=== PATIENT | female | born 1980 ===

== ENCOUNTER 2016-08-19 08:29 | Emergency (ER) | payer OTHER ==
[2016-08-19 08:54] VITALS: O2SAT 96
[2016-08-19] MEDS ORDERED: Albuterol-Ipratrop 3 mg / 0.5 (3 ml) UD INH STA ×2 (09:43→10:46)
--- NOTE | 2016-08-19 10:11 | RAD ---
HISTORY: r/o pneumo COMPARISON: None available. TECHNIQUE: Chest PA and lateral FINDINGS: LUNGS: Patchy opacity within the medial right upper lobe may reflect pneumonia. Please note that chest x-ray has limited sensitivity for the detection of pulmonary masses. PLEURA: No significant pleural effusion identified. No definite pneumothorax . CARDIOVASCULAR: The cardiomediastinal silhouette appears within normal limits of size. OSSEOUS STRUCTURES: No acute osseous abnormality identified. VISUALIZED UPPER ABDOMEN: Unremarkable. OTHER FINDINGS: None. IMPRESSION: Patchy opacity within the medial right upper lobe may reflect pneumonia.
--- NOTE | 2016-08-19 10:32 | ED PDOC ---
HPI: CCC, URI, Sore Throat Time Seen by Provider: 08/19/16 09:11 Chief Complaint (Nursing): Cough, Cold, Congestion Chief Complaint (Provider): Chronic Cough and SOB History Per: Patient History/Exam Limitations: no limitations Have you had recent travel within the past 21 days to any of the following countries: [place], [place], [place] or [place]?: No Onset/Duration Of Symptoms: Days (30) Current Symptoms Are (Timing): Still Present Location Of Pain: None Sick Contacts (Context): None Associated Symptoms: Sore Throat, Cough. denies: Fever, Chills, Neck Pain, Nasal Congestion, Vomiting, Diarrhea Additional Complaint(s): 36 yo F w/ PMHx of Hypothyroid presents to ER w 1 month h/o chronic cough, occasional dyspnea, and occasional SOB. She does state post tussive emesis with chest wall tenderness after some of her coughing fits, however, she denies any recent fever/chills, nausea, sick contacts. Patient states that her seasonal allergies flared up 2 months ago and seemingly resolved, when she began developing a cough that did not dissipate. At the beginning of last week, she went to her PMD and received a script for Doxycycline that she has since been taking daily. She has no history of asthma or pneumonia and has never had any breathing complication or issue in the past. Otherwise, she denies cardiac pain , palpitations, abdominal pain, hematuria, dysuria, or other myalgias. Past Medical History Vital Signs: Last Vital Signs Temp 99.2 F 08/19/16 08:50 Pulse 94 H 08/19/16 08:50 Resp 20 08/19/16 08:50 BP 111/59 L 08/19/16 08:50 Pulse Ox 96 08/19/16 12:35 - Medical History PMH: Hypercholesterolemia, Hyperlipidemia, Hypothyroidism - Family History Family History: States: No Known Family Hx - Home Medications Home Medications: Ambulatory Orders Medication Instructions Recorded Albuterol HFA [Ventolin HFA 90 1 - 2 puff IH Q4H PRN #1 bottle 08/19/16 mcg/actuation (8 g)] Azithromycin [Zithromax] 250 mg PO DAILY #6 tab 08/19/16 - Allergies Allergies/Adverse Reactions: Allergies Allergy/AdvReac Type Severity Reaction Status Date / Time No Known Allergies Allergy Verified 08/19/16 09:15 Curb-65 Severity Score - CURB-65 Severity Score Confusion: No Bun >19mg/dl (>7mmol/L): No Respiratory Rate greater than/equal to 30: No Systolic BP <90 or Diastolic BP less than/equal 60mmHg: No Age >64: No Curb-65 Score: 0 Percentage 30-day mortality: 0.6% Review of Systems ROS Statement: Except As Marked, All Systems Reviewed And Found Negative (see HPI) Physical Exam - Reviewed Nursing Documentation Reviewed: Yes Vital Signs Reviewed: Yes - Physical Exam Appears: Positive for: Non-toxic, Uncomfortable Head Exam: Positive for: ATRAUMATIC, NORMOCEPHALIC Skin: Positive for: Normal Color, Warm, Dry Eye Exam: Positive for: Normal appearance, EOMI, PERRL ENT: Positive for: Normal ENT Inspection. Negative for: Nasal Congestion, Pharyngeal Erythema, Tonsillar Exudate Neck: Positive for: Normal, Painless ROM Cardiovascular/Chest: Positive for: Regular Rate, Rhythm. Negative for: Edema Respiratory: Positive for: Crackles, Wheezing (bilaterally throughout) Gastrointestinal/Abdominal: Positive for: Normal Exam, Soft. Negative for: Tenderness Neurologic/Psych: Positive for: Alert, inside technical sales representative II-XII, Oriented - Laboratory Results Result Diagrams: 08/19/16 08:43 08/19/16 08:43 - ECG O2 Sat by Pulse Oximetry: 96 - Progress ED Course And Treament: 36 yo F w/ PMHx of Hypothyroid presents to ER w 1 month h/o chronic cough, occasional dyspnea, and occasional SOB -CXR -Duoneb x1 -Prednisone 40mg PO x1 -Motrin 600mg PO x1 Update 1030: -Patchy Right middle lobe on CXR -Mild improvement w Duoneb -CBC -CMP -BCx -Rocephin 1gm IVP x1 -Azithromycin PO x1 -Duoneb x1 (additional) Update 1230: -Lung sounds exhibit no change -Patient states her breathing is much improved -To be discharged home w Albuterol and Azithromycin Disposition - Clinical Impression Clinical Impression: Chronic cough, Pneumonia - Patient ED Disposition Is Patient to be Admitted: No - Disposition [facility] [Outside] Disposition: Routine/Home Disposition Time: 13:15 Condition: IMPROVED Additional Instructions: follow up with your primary doctor in 1-2 days return to the ED with any worsening or concerning symptoms. Prescriptions: Albuterol HFA [Ventolin HFA 90 mcg/actuation (8 g)] 1 - 2 puff IH Q4H PRN #1 bottle PRN Reason: Wheezing Azithromycin [Zithromax] 250 mg PO DAILY #6 tab Instructions: Bacterial Pneumonia (ED), Reactive Airways Disease (ED) Print Language: TURKMEN
[2016-08-19 11:08] LABS: BASO # 0.1 K/uL (0.0-0.2); BASO % 0.6 % (0.0-2.0); EOS # 0.5 K/uL (0.0-0.7); EOS % 6.2 % (0.0-4.0); HEMATOCRIT 35.3 % (34.0-47.0); LYMPH # 1.9 K/uL (1.0-4.3); LYMPH % 22.1 % (20.0-40.0); MEAN CELL VOLUME 75.2 fl (81.0-99.0); MEAN CORPUSCULAR HEMOGLOBIN 24.9 pg (27.0-31.0); MEAN CORPUSCULAR HGB CONC 33.1 g/dL (33.0-37.0); MONO # 0.5 K/uL (0.0-0.8); MONO % 6.3 % (0.0-10.0); NEUT # 5.4 K/uL (1.8-7.0); NEUT % 64.8 % (50.0-75.0); NRBC % 0.1 % (0.0-0.0); RED CELL DISTRIBUTION WIDTH 15.3 % (11.5-14.5); WHITE BLOOD COUNT 8.4 K/uL (4.8-10.8)
[2016-08-19 11:18] LABS: ALB/GLOB RATIO 1.2 (1.0-2.1); ALKALINE PHOSPHATASE 68 U/L (38-126); ALT/SGPT 52 U/L (9-52); AST/SGOT 43 U/L (14-36); BLOOD UREA NITROGEN 9 mg/dl (7-17); CALCIUM 9.2 mg/dL (8.4-10.2); CARBON DIOXIDE 22 mmol/L (22-30); CHLORIDE 107 mmol/L (98-107); GFR AFRICAN-AMERICAN > 60; GLUCOSE,RANDOM 91 mg/dL (65-105); SODIUM 140 mmol/l (132-148)
[2016-08-19] MEDS ORDERED: Azithromycin 500 MG in Sodium Chloride 0.9% 250 ML IVPB STA (12:21)
[2016-08-19 14:34] VITALS: PULSE 78; TEMP 97.6
[2016-08-19 16:14] VITALS: BP 128/70; RESP 17
== END 2016-08-19 16:15 | disposition home or self-care (01) ==
LOC: H.ER 08:29
DX: J45.909 Unspecified asthma, uncomplicated (principal); J15.9 Unspecified bacterial pneumonia; E03.9 Hypothyroidism, unspecified

== ENCOUNTER 2017-10-21 09:21 | Emergency (ER) | payer SELFPAY ==
[2017-10-21 09:24] VITALS: BMI 35.2
[2017-10-21 09:25] VITALS: RESP 18; TEMP 98.5; O2SAT 100
--- NOTE | 2017-10-21 09:40 | ED PDOC ---
HPI: Female Pain Time Seen by Provider: 10/21/17 09:29 Chief Complaint (Provider): blood in urine History Per: Detector Car Operator (Basia villa RN note for #) History/Exam Limitations: no limitations Onset/Duration Of Symptoms: Days (2) Current Symptoms Are (Timing): Still Present Quality Of Discomfort: Pressure Associated Symptoms: Urinary Symptoms. denies: Fever, Chills, Nausea, Vomiting , Diarrhea, Loss Of Appetite, Back Pain, Chest Pain Alleviating Factors: None Additional Complaint(s): 37yo female c/o gross blood in urine since wednesday. Denies blood clots in urine , significant dysuria or trouble urinating, back /flank pain. Does note some mild R abd pain. Denies prior or recent UTI, vaginal or rectal bleeding, or new medications. PMD ILC Abnormal Vaginal Bleeding: No Past Medical History Reviewed: Historical Data, Nursing Documentation, Vital Signs Vital Signs: Last Vital Signs Temp 98.5 F 10/21/17 09:24 Pulse 62 10/21/17 09:24 Resp 18 10/21/17 09:24 BP 116/80 10/21/17 09:24 Pulse Ox 100 10/21/17 09:24 - Medical History PMH: Hypercholesterolemia, Hyperlipidemia, Hypothyroidism - Surgical History Surgical History: No Surg Hx - Family History Family History: States: Unknown Family Hx - Living Arrangements Living Arrangements: With Family - Home Medications Home Medications: Ambulatory Orders Medication Instructions Recorded Cephalexin [cephalexin] 500 mg PO TID #21 cap 10/21/17 - Allergies Allergies/Adverse Reactions: Allergies Allergy/AdvReac Type Severity Reaction Status Date / Time No Known Allergies Allergy Verified 08/19/16 09:15 Review of Systems Constitutional: Negative for: Fever ENT: Negative for: Throat Pain Cardiovascular: Negative for: Chest Pain Respiratory: Negative for: Shortness of Breath Gastrointestinal: Positive for: Abdominal Pain Genitourinary Female: Positive for: Frequency, Hematuria. Negative for: Incontinence, Vaginal Discharge, Vaginal Bleeding, Pelvic Pain Musculoskeletal: Negative for: Neck Pain, Shoulder Pain, Back Pain, Leg Pain Skin: Negative for: Rash, Lesions Neurological: Negative for: Weakness, Numbness, Headache, Dizziness Psych: Negative for: Suicidal ideation Physical Exam - Reviewed Nursing Documentation Reviewed: Yes Vital Signs Reviewed: Yes - Physical Exam Appears: Positive for: Well, Non-toxic, No Acute Distress Head Exam: Positive for: ATRAUMATIC, NORMAL INSPECTION, NORMOCEPHALIC Skin: Positive for: Normal Color, Warm, DRY Eye Exam: Positive for: Normal appearance, EOMI Neck: Negative for: Pain On Movement Of Neck Cardiovascular/Chest: Negative for: Tachycardia Respiratory: Negative for: Respiratory Distress Gastrointestinal/Abdominal: Positive for: Soft, Tenderness (very mild tendernes LLQ). Negative for: Guarding, Rebound, Hernia, Asicites Back: Positive for: Normal Inspection. Negative for: L CVA Tenderness, R CVA Tenderness Extremity: Positive for: Normal ROM Neurologic/Psych: Positive for: Alert, Oriented. Negative for: Motor/Sensory Deficits - Laboratory Results Result Diagrams: 10/21/17 09:55 10/21/17 09:55 - ECG O2 Sat by Pulse Oximetry: 100 Medical Decision Making Medical Decision Making: workup for hematuria initiated in ED labs reviewed renal function unremarkable Renal sono negative UA ++RBC and small WBC Will initiate keflex pending Urine culture, followup PMD and urology for further testing if symptoms persist Disposition - Clinical Impression Clinical Impression: Hematuria - Patient ED Disposition Is Patient to be Admitted: Yes Counseled Patient/Family Regarding: Studies Performed, Diagnosis, Need For Followup - Disposition Referrals: Wilberto Adhikari MD [Medical Doctor] - [facility] [Outside] Disposition: Routine/Home Disposition Time: 11:20 Condition: STABLE Additional Instructions: Followup with PMD and urology. You may need further testing as an outpatient. Return to ER for any weakness, fever, worse bleeding or any concern. Take antibiotics as directed. Seguimiento con PMD y urologa. Es posible que necesite ms pruebas matthew paciente ambulatorio. Regrese a la gael de emergencias por cualquier debilidad, fiebre, sangrado o cualquier preocupacin. [place] antibiticos segn lo indicado. Resultados de cultivo de orina disponibles en 1-3 galloway. Se le llamar si necesita cambiar chaudhary antibitico. Prescriptions: Cephalexin [cephalexin] 500 mg PO TID #21 cap Instructions: Blood in the Urine (Hematuria) in Adults Print Language: ARABIC
[2017-10-21 10:51] LABS: BASO # 0.1 K/uL (0.0-0.2); BASO % 1.1 % (0.0-2.0); EOS # 0.1 K/uL (0.0-0.7); EOS % 1.7 % (0.0-4.0); HEMOGLOBIN 11.9 g/dL (12.0-16.0); LYMPH # 1.9 K/uL (1.0-4.3); LYMPH % 35.4 % (20.0-40.0); MEAN CELL VOLUME 78.1 fl (81.0-99.0); MEAN CORPUSCULAR HEMOGLOBIN 26.7 pg (27.0-31.0); MEAN CORPUSCULAR HGB CONC 34.2 g/dL (33.0-37.0); MEAN PLATELET VOLUME 8.2 fl (7.2-11.7); MONO # 0.3 K/uL (0.0-0.8); MONO % 6.1 % (0.0-10.0); NEUT % 55.7 % (50.0-75.0); NRBC % 0.3 % (0.0-0.0); RBC 4.45 Mil/uL (3.80-5.20); WHITE BLOOD COUNT 5.4 K/uL (4.8-10.8)
[2017-10-21 11:04] LABS: CALCIUM 8.7 mg/dL (8.4-10.2); GFR NON-AFRICAN AMERICAN > 60
[2017-10-21 11:12] LABS: BLOOD UREA NITROGEN 13 mg/dl (7-17)
--- NOTE | 2017-10-21 11:13 | US ---
Date of service: 10/21/2017 PROCEDURE: Ultrasound of the Kidneys HISTORY: gross hematuria, mild R abd pain COMPARISON: None available. TECHNIQUE: Sonogram of the kidneys. FINDINGS: RIGHT KIDNEY: Measures: 11.2 cm. Normal in size, contour and echogenicity. No stone, solid mass lesion or hydronephrosis visualized. LEFT KIDNEY: Measures: 11.6 cm. Normal in size, contour and echogenicity. No stone, solid mass lesion or hydronephrosis visualized. OTHER FINDINGS: None. IMPRESSION: Unremarkable renal sonogram.
[2017-10-21 11:14] LABS: SQUAMOUS EPITHIAL 1 /hpf (0-5); URINE BACTERIA RARE (<OCC); URINE BILIRUBIN NEGATIVE (NEGATIVE); URINE BLOOD LARGE (NEGATIVE); URINE CLARITY CLOUDY (Clear); URINE GLUCOSE (UA) NEG (Normal); URINE LEUKOCYTE ESTERASE NEG Leu/uL (Negative); URINE PROTEIN 30 mg/dL (NEGATIVE); URINE UROBILINOGEN 0.2-1.0 mg/dL (0.2-1.0)
[2017-10-21 11:16] LABS: URINE COLOR RED (YELLOW)
[2017-10-21 12:11] VITALS: BP 125/85; PULSE 70
== END 2017-10-21 12:11 | disposition home or self-care (01) ==
LOC: H.ER 09:21
DX: R31.9 Hematuria, unspecified (principal); E78.00 Pure hypercholesterolemia, unspecified; E03.9 Hypothyroidism, unspecified